=== PATIENT | male | born 1960 | race Caucasian/White ===

== ENCOUNTER 2016-12-20 13:43 | Inpatient (IN) | payer MEDICARE ==
--- NOTE | ~2016-12-20 | EKG ---
PATIENT: ERENDIRA BALLESTEROS UNIT #: [id number] Ventricular Rate: 99 BPM Atrial Rate: 182 BPM QRS Duration: 106 ms Q-T Interval: 424 ms QTC Calculation(Bezet): 544 ms Calculated R [place]: 73 degrees Calculated T [place]: 126 degrees Diagnosis Line: Atrial fibrillation Diagnosis Line: Septal infarct (cited on or before 06-SEP-2010) Diagnosis Line: Prolonged QT Diagnosis Line: Abnormal ECG Diagnosis Line: When compared with ECG of 22-DEC-2015 09:44, Diagnosis Line: Significant changes have occurred Diagnosis Line: Confirmed by OCTAVIO GARDNER MD ([id number]) on 12/23/2016 Diagnosis Line: 7:22:22 AM INTERPRETING MD: JJ LEZAMA
--- NOTE | ~2016-12-20 | CO ---
Unit #: [id number] #: [id number] Patient: ERENDIRA BALLESTEROS JR [id number] [address] [address] [id number] I MR#: [id number] NAME: ERENDIRA BALLESTEROS JR [facility] Age[facility] 56 Sex: M Admission Date: 12/20/2016 : 1960 Attending Physician: Jw Guzman M.D. Primary Care Physician: No Primary Care Physician CONSULTATION REPORT REASON FOR CONSULTATION Critical care management. CHIEF COMPLAINT Altered mental status. HISTORY OF PRESENT ILLNESS Patient brought in by the EMS with altered mental status. Ambulance was called by the family member. Patient was found pulseless, anoxic and was intubated by the EMS staff and was resuscitated. Please see ACLS sheet. I am seeing him at the bedside. Currently, not breathing over the vent, unresponsive on a ventilator, on pressors and is hypotensive. REVIEW OF SYSTEMS Unobtainable. PAST MEDICAL HISTORY Significant for: 1. Hypertension. 2. Coronary artery disease. 3. Dyslipidemia. 4. Hepatitis C. SOCIAL HISTORY Drug abuse. ALLERGIES No known drug allergies. MEDICATIONS As per MAR, has been reviewed. Include: 1. Metformin. 2. Lopressor. 3. Plavix. 4. Lisinopril. 5. Oxycodone. 6. Clotrimazole. PHYSICAL EXAMINATION GENERAL: Currently unresponsive, on ventilator. CVS: S1+ S2. RESPIRATIONS: Bilateral air entry, bilateral mild rhonchi. GI: Nontender, soft. Bowel sounds positive. EXTREMITIES: No edema. Unit #: [id number] #: [id number] Patient: ERENDIRA BALLESTEROS JR SKIN: No rashes, no ulcers. LYMPHATIC: No lymphadenopathy. DIAGNOSTIC STUDIES Labs and imaging have been reviewed. ASSESSMENT AND PLAN 1. Acute respiratory failure. 2. Altered mental status. 3. Anoxic brain injury. 4. Drug overdose. 5. Respiratory and metabolic acidosis. 6. Diabetic ketoacidosis. 7. Hyponatremia. 8. History of coronary artery disease. 9. Leukocytosis. 10. Aspiration pneumonia. At this point, plan is to continue ventilator support, broad spectrum IV antibiotic, continue pressors, insulin drip, aggressive IV hydration. Neurology consultation, cardiology consultation requested. 2D echo. Patient will be closely monitored. Please see orders for detailed plan. I would like to thank you for your kind consideration to involve me in taking care of this patient. Total critical care time is 75 minutes in direct critical care of this patient. Dictated by... Robi Michael TD: 12/21/2016 10:04 JOB #: [id number] CONSULTATION REPORT X Cale Ulrich MD CONSULTATION REPORT
--- NOTE | ~2016-12-20 | CR72 ---
[facility] A Service of [facility] & [facility] RADIOLOGY TEXT RESULTS PATIENT: ERENDIRA BALLESTEROS JR LOCATION: [address] : [birth year] UNIT #: [id number] AGE: [address]: Jw Guzman MD SEX: M ORDER DR: [id number] [facility] [address] [facility]. [place], [place] [address] [id number] I MR#: [id number] Acc #: [id number] NAME: ERENDIRA BALLESTEROS JR : 1960 SEX: M STUDY DATE/TIME: 12/21/2016 12:54 UNIT: [facility] ROOM: [facility] STUDY DESCRIPTION: CR Chest Single View Portable Attending Physician: Jw Guzman M.D. Ordering Physician: Cale Ulrich M.D. Primary Care Physician: Primary Care Physician No MEDICAL IMAGING REPORT This report is preliminary unless electronic signature is present EXAM Portable chest 12/21/2016 HISTORY Line placement today. COMPARISON Chest 12/21/2016. FINDINGS Frontal chest demonstrates interval placement of a right subclavian central venous catheter with tip projecting over the lower SVC. All other tubes and lines are stable. No pneumothorax. Lungs clear. Heart size and mediastinum within normal limits. IMPRESSION Placement of a right subclavian central venous catheter with tip projecting over the lower SVC. All other tubes and lines are stable. No pneumothorax. Dictated by... Juan M Kelly M.D. THIS IS AN ELECTRONICALLY VERIFIED REPORT Juan M Kelly M.D. at 12/23/2016 7:46 AM CHARISSE/silvia TD: 12/22/2016 12:12 JOB #: [id number] MEDICAL IMAGING REPORT COPY
--- NOTE | ~2016-12-20 | CR72 ---
[facility] A Service of [facility] RADIOLOGY TEXT RESULTS PATIENT: ERENDIRA BALLESTEROS JR LOCATION: [address] : [birth year] UNIT #: [id number] AGE: [address]: Jw Guzman MD SEX: M ORDER DR: [id number] [facility] [address] [facility]. [place], [place] [address] [id number] I MR#: [id number] Acc #: [id number] NAME: ERENDIRA BALLESTEROS JR : 1960 SEX: M STUDY DATE/TIME: 12/22/2016 4:45 UNIT: [facility] ROOM: [facility] STUDY DESCRIPTION: CR Chest Single View Portable Attending Physician: Jw Guzman M.D. Ordering Physician: Cale Ulrich M.D. Primary Care Physician: No Primary Care Physician MEDICAL IMAGING REPORT This report is preliminary unless electronic signature is present EXAM AP portable chest 12/22/2016 HISTORY Respiratory failure. Patient on ventilator. Follow up cardiopulmonary status. TECHNIQUE AP portable chest x-ray. FINDINGS The patient has developed new onset dense left lower lobe consolidation since the last study obtained yesterday. This causes opacification of the left lower lobe behind the heart and obscures the left hemidiaphragm. Right lung remains clear. Heart size normal. Endotracheal tube, bilateral subclavian central venous catheters and NG tube remain in good position. IMPRESSION New dense consolidation within the left lower lobe. STAT * RESULT Dictated by... Hero Dale M.D. THIS IS AN ELECTRONICALLY VERIFIED REPORT Hero Dale M.D. at 12/22/2016 5:59 AM [facility] A Service of [facility] & [facility] RADIOLOGY TEXT RESULTS PATIENT: ERENDIRA BALLESTEROS JR LOCATION: [facility] : [birth year] UNIT #: [id number] AGE: [address]: Jw Guzman MD SEX: M ORDER DR: ZONIA/marquise TD: 12/22/2016 05:35 JOB #: [id number] MEDICAL IMAGING REPORT COPY
--- NOTE | ~2016-12-20 | OR ---
Unit #: [id number] #: [id number] Patient: ERENDIRA BALLESTEROS JR [id number] [address] [address] [id number] I MR#: [id number] NAME: ERENDIRA BALLESTEROS JR ROOM: [facility] Date of Procedure: Admission Date: 12/20/2016 Surgeon: Cale Ulrich M.D. : 1960 Attending Physician: Jw Guzman M.D. Primary Care Physician: Ashley Primary Care Physician PROCEDURE OPERATIVE NOTE PROCEDURE PERFORMED Central line placement. INDICATIONS Shock. PRE-PROCEDURE DIAGNOSIS Shock. POST-PROCEDURE DIAGNOSIS Shock. DETAILS OF THE PROCEDURE After taking consent from the family explaining the risks and benefits, we prepped the left side of the chest with ChloraPrep and, under all aseptic technique, and with modified Seldinger technique, a triple lumen central venous catheter inserted in the left subclavian vein. All three ports flushed and working. Guidewire was removed in toto and the line was secured with two interrupted, sutured in place. No complications happened. Dictated by... Robi Michael/shruthi TD: 12/21/2016 10:11 JOB #: [id number] PROCEDURE OPERATIVE NOTE X Cale Ulrich MD PROCEDURE OPERATIVE NOTE
--- NOTE | ~2016-12-20 | EKG ---
PATIENT: ERENDIRA BALLESTEROS UNIT #: [id number] Ventricular Rate: 125 BPM Atrial Rate: 125 BPM P-R Interval: 124 ms QRS Duration: 74 ms Q-T Interval: 320 ms QTC Calculation(Bezet): 461 ms P [place]: 76 degrees Calculated R [place]: 75 degrees Calculated T [place]: 87 degrees Diagnosis Line: Sinus tachycardia Diagnosis Line: Anteroseptal infarct (cited on or before Diagnosis Line: 06-SEP-2010) Diagnosis Line: Abnormal ECG Diagnosis Line: When compared with ECG of 21-DEC-2016 06:47, Diagnosis Line: Nonspecific T wave abnormality no longer evident Diagnosis Line: in Inferior leads Diagnosis Line: Confirmed by AYAZ SUAZO MD ([id number]) on Diagnosis Line: 12/22/2016 8:12:50 PM Diagnosis Line: Also confirmed by AYAZ SUAZO MD ([id number]) on Diagnosis Line: 12/22/2016 8:13:22 PM INTERPRETING MD: SHERI
--- NOTE | ~2016-12-20 | CT71 ---
[facility] A Service of [facility] RADIOLOGY TEXT RESULTS PATIENT: ERENDIRA BALLSETEROS JR LOCATION: [facility] : [birth year] UNIT #: [id number] AGE: [address]: Jw Guzman MD SEX: M ORDER DR: [id number] [facility] [address] [facility]. [place], [place] [address] [id number] I MR#: [id number] Acc #: [id number] NAME: ERENDIRA BALLESTEROS JR : 1960 SEX: M STUDY DATE/TIME: 12/20/2016 15:21 UNIT: [facility] ROOM: [facility] STUDY DESCRIPTION: CT Head Wo Contrast Attending Physician: Jw Guzman M.D. Ordering Physician: Garima Phan M.D. Primary Care Physician: No Primary Care Physician MEDICAL IMAGING REPORT This report is preliminary unless electronic signature is present EXAM Head CT without contrast. DATE OF EXAM 12/20/2016 HISTORY Pupils fixed. Patient unresponsive. Heroin overdose today. TECHNIQUE Axial images were obtained without contrast. NOTE: This CT exam was performed with one or more of the following radiation dose reduction techniques: automatic exposure control, adjustment of mA and/or kV according to patient size, and iterative reconstruction. FINDINGS There is generalized cerebral edema noted with loss of joseph-white matter differentiation. There is no evidence of intracranial hemorrhage. No midline shift is seen. The ambient cisterns are preserved. Extraaxial structures are remarkable for extensive chronic inflammatory sinus disease with fluid in the sphenoid sinuses and right frontal sinus. IMPRESSION Diffuse cerebral edema without evidence of hemorrhage, mass effect, herniation or midline shift. Also noted is mixed chronic and acute pansinusitis. Dictated by... Luis Hdz M.D. THIS IS AN ELECTRONICALLY VERIFIED REPORT Luis Hdz M.D. at 12/22/2016 9:40 PM [facility] A Service of [facility] RADIOLOGY TEXT RESULTS PATIENT: ERENDIRA BALLESTEROS JR LOCATION: [facility] : [birth year] UNIT #: [id number] AGE: [address]: Jw Guzman MD SEX: M ORDER DR: SOFIE/bautitsa TD: 12/20/2016 22:23 JOB #: [id number] MEDICAL IMAGING REPORT COPY
--- NOTE | ~2016-12-20 | A ---
[facility] Nutrition Therapy DATE: 12/21/16 Patient: ERENDIRA BALLESTEROS JR Physician: NATY Address: [address] [place] [address] Room/Bed: [address], Zip: [place] [address] Admit Date: 12/20/16 Date of : [birth year] Height: 6 1 Weight: 163 74 NUTRITIONAL ASSESSMENT: REASON: ICU nutrition assessment 56 yo male admitted for heroin OD, respiratory failure, questionable anoxic brain injury PMH: DM, HTN, CAD, dyslipidemia, hepatitis C, MRSA, cardiac catherization Anthropometrics: Ht: 6'1" Adm wt: 74 kg BMI: 21.5 Labs: K+ 3.2 BUN 32 Creat 2.4 Alb 2.0 AST 182 ALT 106 Mg++ 1.5 Phos 9.2 Accuchecks 74-174 HgbA1C 11.2 Meds: NaCl, D5%, levophed, novolin, sodium bicarbonate, D50%, protonix I/O & Bowel function: 4108/310, last BM 12/21, OGT, abdomen firm, distended Skin Integrity: Small bruises BUE Edema: Trace BL feet and legs/ BL hands and arms Estimated Nutrition Needs: 6703-3288 kcals (25-30 kcals/kg) 111-148 grams protein (1.5-2.0 grams/kg) Assessment: Chart reviewed, events noted. Pt admitted for respiratory failure after heroin overdose, intubated in the ICU. Pt to start on CRRT today. Pt has h/o DM with HgbA1C of 11.2%. No plans for nutrition support at this time. Pt has an OGT. Please see recommendations below. Dx: Inadequate protein-energy intake RT clinical condition AEB no diet order, pt not receiving nutrition at this time, intubated. Intervention: 1. Enteral nutrition once medically feasible Monitoring, Evaluation and Goals: 1. Enteral nutrition; initiate and provide >80% goal volume once medically feasible 2. Labs; WNL: electrolytes, AST, ALT, glucose 3. Weight; prevent unintentional weight loss Recommendations: 1. Once medically feasible, recommend initiating enteral nutrition with Nepro @ 20 mL/hr [facility] Nutrition Therapy DATE: 12/21/16 Patient: ERENDIRA BALLESTEROS JR Physician: NATY Address: [address] [place] [address]/Bed: [address], Zip: [place] [address] Admit Date: 12/20/16 Date of : [birth year] Height: 6 1 Weight: 163 74 + 30 mL Prostat once daily. Increase by 10 mL q 6 hrs as tolerated to goal of 50 mL/hr + 30 mL Prostat once daily. This would provide: 2260 kcals/ 112 grams protein/ 876 mL free H20 2. If enteral nutrition is started, monitor for residuals and symptoms of intolerance per protocol. Pt is at moderate-severe nutritional risk. RD will follow hospital course. Respectfully, DARCY WALLACE RD, LD [facility] cc: client file
--- NOTE | ~2016-12-20 | CR71 ---
[facility] A Service of [facility] & [facility] RADIOLOGY TEXT RESULTS PATIENT: ERENDIRA BALLESTEROS JR LOCATION: [address] : [birth year] UNIT #: [id number] AGE: [address]: Jw Guzman MD SEX: M ORDER DR: [id number] [facility] [address] [facility]. [place], [place] [address] [id number] I MR#: [id number] Acc #: [id number] NAME: EERNDIRA BALLESTEROS : 1960 SEX: M STUDY DATE/TIME: 12/21/2016 3:47 UNIT: [facility] ROOM: [facility] STUDY DESCRIPTION: CR Chest Single View Attending Physician: Jw Guzman M.D. Ordering Physician: Cale Ulrich M.D. Primary Care Physician: No Primary Care Physician MEDICAL IMAGING REPORT This report is preliminary unless electronic signature is present EXAM AP portable chest 12/21/2016 HISTORY Respiratory failure. Patient on ventilator. TECHNIQUE AP portable chest x-ray. FINDINGS Moderately dense airspace infiltrate is present in a left lower lobe at the hilum, unchanged since yesterday. Remaining portions of both lungs are clear. Heart size normal. Coronary artery stent on the left. Endotracheal tube and left subclavian central line remain in good position. NG tube below the diaphragm. IMPRESSION 1. Persistent dense infiltrate in left inferior hilar region. 2. Support devices in good position. 3. No change since yesterday. Dictated by... Hero Dale M.D. THIS IS AN ELECTRONICALLY VERIFIED REPORT Hero Dale M.D. at 12/22/2016 5:30 AM RICKIW/marquise TD: 12/22/2016 02:30 JOB #: [id number] MEDICAL IMAGING REPORT COPY
--- NOTE | ~2016-12-20 | CO ---
Unit #: [id number] #: [id number] Patient: ERENDIRA BALLESTEROS JR [id number] [facility] [address] [facility]. [place], [place] [address] [id number] I MR#: [id number] NAME: ERENDIRA BALLESTEROS JR ROOM: [facility] Age: 56 Sex: M Admission Date: 12/20/2016 : 1960 Attending Physician: Jw Guzman M.D. Consultation Date: 12/21/2016 CONSULTATION REPORT REASON FOR CONSULTATION REQUEST Acute non ST-elevation myocardial infarction. HISTORY OF PRESENT ILLNESS Mr. Ballesteros was admitted with acute hypoxic respiratory failure and cardiopulmonary arrest likely related to heroin overdose. He is a patient Dr. Rios. His sisters were present in ICU room 21 when I examined the patient. They state that he tried to commit suicide with an overdose two weeks ago, but someone on the street gave him Narcan, and he survived. He was at his current 's house, apparently who has a restraining order against him, and was reported to be unresponsive. EMS was called, but we are not sure by whom. He was found pulseless, intubated, resuscitated, and brought to the emergency room. In the emergency room, hypotension was noted, IV fluids were started, and Levophed was given. Initial CT scan of the head showed diffuse edema, suspicious for an anoxic brain injury. He has fixed and dilated pupils, and no doll's eyes. Family members left the emergency room apparently. The current is not available. The daughter has been contacted, but she will not come in currently. Another daughter in [place] has been called apparently. His first ex- has apparently been contacted. From a cardiac perspective, he has been maintained on maximum doses of Levophed, with heart rates greater than 100. An echo was done this morning and showed an ejection fraction of 20% to 25%. Blood pressure has been maintained in the 95 to 100 range. ECG shows sinus tachycardia, with nonspecific ST changes in inferior and lateral. The most recent ECG from 6:47 this morning shows a slight change in aVL, which suggests that the order to delivery supervisor is probably an aVR type order to delivery supervisor. Otherwise, there are no significant changes in comparison with the 12:45 on 12/20/2016 ECG. Labs show current pH 7.22, pCO2 of 54, PO2 293. Creatinine is increased from 1.02 to 2.4, and urine output is negligible. Potassium was initially 3.7, now is 3.2, and being replaced. Magnesium is 1.5, down from 2.2. Total protein and albumin of 5.0 and 2.0. Troponin initially was 18 and is increased to 30. Lactic acid is 2.6, down from 9.2. PAST MEDICAL HISTORY 1. Hypertension. 2. Coronary artery disease. Unit #: [id number] #: [id number] Patient: ERENDIRA BALLESTEROS JR 3. Dyslipidemia. 4. Hepatitis C. 5. MRSA infection in the past. 6. Suicide attempts in the past. PAST SURGICAL HISTORY Cardiac catheterization with stenting placed x2. HOME MEDICATIONS We cannot obtain this information. ALLERGIES Unknown. SOCIAL HISTORY As stated above regarding the children, and wives. FAMILY HISTORY Unknown. PHYSICAL EXAMINATION GENERAL: He is intubated, in room 21, multiple IVs. VITAL SIGNS: Blood pressure 94/65, heart rate is 116, respiratory rate is 16. HEENT: Pupils are dilated, fixed, unresponsive, and no doll's eyes are present. Orally intubated. EXTREMITIES: No clubbing, cyanosis, or edema. Evidence of trauma to the left hand. NECK: Supple with no bruits and no JVD. CHEST: Shows no rales bilaterally. CARDIAC: Shows normal S1 and S2, tachycardic, no S3 or S4, no murmur. ABDOMEN: Nondistended, soft. Cannot assess any reaction. NEUROLOGIC: He is unresponsive, no reflexes. DIAGNOSTIC STUDIES As above regarding ECG and labs. IMPRESSION 1. Acute cardiogenic shock. 2. Non ST-elevation myocardial infarction with troponin increase. 3. Abnormal ECG. 4. Acute systolic congestive heart failure, EF of 20% to 25%. 5. Drug overdose. Urinalysis was positive for amphetamines and opiates. His sisters state that he did not take alcohol, but did smoke. 6. Acute kidney injury. 7. Acute respiratory failure. RECOMMENDATIONS Multiple organ failure. Family is being contacted. From a cardiac standpoint, no intervention is planned. No further evaluations are planned at this time. We will check an ECG and troponin in the morning. Thank you very much for this consultation. Dictated by... Edilberto Ma M.D. Unit #: [id number] #: [id number] Patient: ERENDIRA BALLESTEROS JR/marce TD: 12/21/2016 13:48 JOB #: [id number] CONSULTATION REPORT X Edilberto Ma MD CONSULTATION REPORT
--- NOTE | ~2016-12-20 | CR71 ---
[facility] A Service of [facility] RADIOLOGY TEXT RESULTS PATIENT: ERENDIRA BALLESTEROS JR LOCATION: [address] : [birth year] UNIT #: [id number] AGE: [address]: Jw Guzman MD SEX: M ORDER DR: [id number] [facility] [address] [facility]. [place], [place] [address] [id number] I MR#: [id number] Acc #: [id number] NAME: ERENDIRA BALLESTEROS : 1960 SEX: M STUDY DATE/TIME: 12/20/2016 20:58 UNIT: [facility] ROOM: [facility] STUDY DESCRIPTION: CR Chest Single View Attending Physician: Jw Guzman M.D. Ordering Physician: Jw Guzman M.D. Primary Care Physician: No Primary Care Physician MEDICAL IMAGING REPORT This report is preliminary unless electronic signature is present EXAM Portable chest. DATE OF EXAM 12/20/2016 HISTORY Line placement today. FINDINGS Left subclavian central line tip is in the low SVC 2 cm above the junction SVC and right atrium. No pneumothorax. ETT tip is 5.5 cm above the ally. NG tube extends into the stomach and the tip is not seen. There has been interval near-complete clearing of bilateral perihilar edema or atelectasis compared to earlier today. No new infiltrates. Dictated by... Gonzalo Perkins M.D. THIS IS AN ELECTRONICALLY VERIFIED REPORT Gonzalo Perkins M.D. at 12/21/2016 11:38 PM MEGAN/bautista TD: 12/21/2016 18:39 JOB #: [id number] MEDICAL IMAGING REPORT COPY
--- NOTE | ~2016-12-20 | CO ---
Unit #: [id number] #: [id number] Patient: ERENDIRA BALLESTREOS JR [id number] [address] [place], [place] [address] [id number] I MR#: [id number] NAME: ERENDIRA BALLESTEROS JR ROOM: CIC3 Age: 56 Sex: M Admission Date: 12/20/2016 : 1960 Attending Physician: Jw Guzman M.D. Consultation Date: 12/21/2016 CONSULTATION REPORT REASON FOR CONSULT Acute kidney injury. HISTORY OF PRESENT ILLNESS Mr. Ballesteros is a 56-year-old white male with a history of heroin and methamphetamine use, who was admitted to the hospital after cardiopulmonary arrest and a suspected heroin overdose. All of the history is obtained from the chart as the patient is nonresponsive on the ventilator. He apparently did heroin sitting on the porch and was found unresponsive. I am told by nursing that he was down for about 20 minutes. EMS started resuscitation and brought him to the emergency room. The patient was severely hypotensive on admission with blood pressures down into the 50s and had pressors and IV fluids started. His CT of the head did show diffuse edema that was suspicious for anoxic brain injury. The patient is now requiring three pressors and is not making any urine. Also, he has a history of hypertension, hepatitis C, and diabetes. Family that is present do not think that he has been taking any medications for these issues. PAST MEDICAL HISTORY Significant for hypertension, diabetes, coronary artery disease, hyperlipidemia, hepatitis C, previous MRSA infection. PAST SURGICAL HISTORY Cath with stents. HOME MEDICATIONS Not known. ALLERGIES No known drug allergies. FAMILY HISTORY The patient not able to give family history. SOCIAL HISTORY Again, the patient is a heroin addict and also uses methamphetamine according to family. He is a smoker. He drinks. REVIEW OF SYSTEMS A complete 12-point review of systems was attempted, but simply unable to be obtained with the patient being nonresponsive on the ventilator. PHYSICAL EXAMINATION Unit #: [id number] #: [id number] Patient: ERENDIRA BALLESTEROS JR VITAL SIGNS: The patient's temperature is 98.3, he has been hypothermic and then got up to 100.4; pulse 110; respiratory rate 28; blood pressure 123/77, blood pressure got as low as 54/37. I's and O's are positive by 3.7 L. GENERAL: This is a 56-year-old male, nonresponsive on the ventilator, in no acute distress. HEENT: Head is atraumatic and normocephalic. Eyes show pink conjunctivae. No nasal drainage or nosebleed. The patient is orally intubated. NECK: Shows no rigidity. HEART: Tachycardic and regular with no gallop or rub appreciated. LUNGS: Have bilateral rhonchi. Breath sounds with no wheezing. Breathing is nonlabored on the ventilator. ABDOMEN: Soft, nontender, and nondistended. There are minimal bowel sounds. EXTREMITIES: No lower extremity cyanosis or pitting edema. SKIN: Dry with numerous tattoos. GENITOURINARY: Sesay catheter is in place with minimal nonbloody urine. MUSCULOSKELETAL: No joint effusions noted. LYMPHATIC: There is no significant neck or cervical lymphadenopathy. PSYCHIATRIC: Unable to assess. DIAGNOSTIC STUDIES LABORATORY RESULTS: ABG this morning showed a pH of 7.31, pCO2 of 39, pO2 of 192, bicarb 20. Hemoglobin A1c was 11. Last chemistry this morning; sodium 137, potassium 3.2, chloride 104, bicarb 22, glucose 101, BUN 32, creatinine 2.4 with high AST and ALT and low albumin at 2. CK level this morning was 702, troponin was 30. Lactic acid 2.6. Magnesium came back low at 1.5. Urine drug screen was positive for amphetamines and opioids. BNP was 964 on admission. Urinalysis did have 1+ protein and trace blood with some white blood cells. Lactic acid was 9.2. Admission creatinine was 1, therefore creatinine has steadily increased from 1 to 2.4 with a little urine. ASSESSMENT AND PLAN 1. Acute kidney injury. The patient seems to have severe acute tubular necrosis from cardiopulmonary arrest and hypotension. Despite resuscitative measures, he is not making any urine. We will need to start QUALITY ASSURANCE REPRESENTATIVE. Daughter is not present to help guide us as far as making decisions are concerned, but since we are doing full supportive care at this time. We will add QUALITY ASSURANCE REPRESENTATIVE, however, I do think his prognosis is very poor. I did discuss this case with Dr. Ulrich. 2. Hypokalemia. This has been replaced this morning and we will correct further on a 4K bath on dialysis. 3. Sepsis syndrome, on Zosyn. I will add vancomycin for skin organism coverage with his history of heroin injections. 4. Hypotension, on three pressors at this time. 5. Hepatitis C positive with human immunodeficiency virus test pending. 6. Diabetes with poor control. 7. History of hypertension and heart disease with now low ejection fraction of 20%. 8. Polysubstance abuse. 9. Low magnesium level. This was replaced. Daughters are not present, and apparently, he and his have court orders against each other as far as I can gather among the extended family that is present. I explained to the extended family that was present that his prognosis is very poor considering his overall chronic health issues Unit #: [id number] #: [id number] Patient: FAVIAN GARCÍAERENDIRA and now these acute issues, especially his suspected anoxic brain injury. We would like to thank you for this consultation and the opportunity to participate in the evaluation and care of Mr. Ballesteros. Dictated by... Cyrus Sarah Jr., MTaniya WHITLOCK/marce TD: 12/22/2016 01:50 JOB #: [id number] CONSULTATION REPORT X Cyrus Sarah MD X CONSULTATION REPORT
--- NOTE | ~2016-12-20 | CR72 ---
[facility] A Service of [facility] RADIOLOGY TEXT RESULTS PATIENT: ERENDIRA BALLESTEROS JR LOCATION: CEDOF : [birth year] UNIT #: [id number] AGE: [address]: Jw Guzman MD SEX: M ORDER DR: [id number] [facility] [address] [facility] [place], [place] [address] [id number] MR#: [id number] Acc #: [id number] NAME: ERENDIRA BALLESTEROS : 1960 SEX: M STUDY DATE/TIME: 12/20/2016 1253 UNIT: EFRAIN ROOM: STUDY DESCRIPTION: CR Chest Single View Portable Attending Physician: Garima Phan M.D. Ordering Physician: Garima Phan M.D. Primary Care Physician: No Primary Care Physician MEDICAL IMAGING REPORT This report is preliminary unless electronic signature is present EXAM Chest portable 12/20/2016 1253 hours HISTORY 56-year-old man with respiratory failure, shortness of air, severe congestion, heroin overdose, decreased saturation levels and new endotracheal tube placement. COMPARISON 12/22/2015 FINDINGS Portable upright chest demonstrates endotracheal tube with tip approximately 3 cm above the ally. There is diffuse bilateral mixed interstitial and airspace change mostly in the perihilar distribution suggesting edema. There is no effusion or pneumothorax. There is gaseous distension of the stomach. IMPRESSION 1. New endotracheal tube tip terminates 3 cm above the ally. 2. There is diffuse bilateral mixed interstitial and airspace change predominantly in a perihilar distribution suggesting edema. Pneumonia cannot be excluded. There is no pleural effusion or pneumothorax. 3. Gaseous distension of the stomach is seen. Dictated by... Zulma Welch M.D. THIS IS AN ELECTRONICALLY VERIFIED REPORT Zulma Welch M.D. at 12/20/2016 6:17 PM Douglas [facility] A Service [facility] RADIOLOGY TEXT RESULTS PATIENT: ERENDIRA BALLESTEROS JR LOCATION: CEDOF : [birth year] UNIT #: [id number] AGE: [address]: Jw Guzman MD SEX: M ORDER DR: TD: 12/20/2016 16:32 JOB #: [id number] MEDICAL IMAGING REPORT COPY
--- NOTE | ~2016-12-20 | OR ---
Unit #: [id number] #: [id number] Patient: ERENDIRA BALLESTEROS JR [id number] [address] [address] [id number] MR#: [id number] NAME: ERENDIRA BALLESTEROS ROOM: [facility] Date of Procedure: Admission Date: 12/20/2016 Surgeon: Cale Ulrich M.D. : 1960 Attending Physician: Jw Guzman M.D. Primary Care Physician: Ashley Primary Care Physician PROCEDURE OPERATIVE NOTE PROCEDURE PERFORMED Right subclavian dialysis catheter placement. INDICATION Renal failure. PRE-PROCEDURE DIAGNOSIS (1) . POST-PROCEDURE DIAGNOSIS (2) . DETAILS OF THE PROCEDURE After placing patient in a proper position, we prepped the right side of the chest with ChloraPrep in a sterile fashion with modified Seldinger technique. A 12-Croatian 16 cm dialysis catheter placed in the right subclavian vein. All three ports flushed and working. Guidewire was removed in toto. Catheter was sutured in place with two interrupted sutures. Sterile dressing was applied. Post procedure chest x-ray ordered. No complications happened. Dictated by... Robi Michael/shruthi TD: 12/21/2016 13:49 JOB #: [id number] PROCEDURE OPERATIVE NOTE X Cale Ulrich MD X PROCEDURE OPERATIVE NOTE
--- NOTE | ~2016-12-20 | HP ---
Unit #: [id number] #: [id number] Patient: REENDIRA BALLESTEROS JR [id number] [address] [address] [id number] Henrique MR#: [id number] NAME: ERENDIRA BALLESTEROS JR [facility] Age[facility] 56 Sex: M Admission Date: 12/20/2016 : 1960 Attending Physician: Jw Guzman M.D. Primary Care Physician: No Primary Care Physician HISTORY AND PHYSICAL ADMISSION DIAGNOSES 1. Acute hypoxemic respiratory failure. 2. Status post cardiopulmonary arrest. 3. Heroin overdose. 4. History of coronary artery disease. 5. History of diabetes. 6. Hypertension. 7. Dyslipidemia. 8. History of hepatitis C. HISTORY OF PRESENT ILLNESS Mr. Ballesteros is a 56-year-old gentleman, patient of Dr. Rios, who apparently was sitting on the porch at home and apparently he did heroin and was found unresponsive. EMS was called. EMS found him pulseless. He was intubated, resuscitated and brought to the emergency room. In the emergency room, he was found hypotension, started on IV fluids, started on Levophed. Initial evaluation with CT head shows diffuse edema, suspicious for anoxic brain injury. The patient remains unresponsive with fixed, dilated pupils. Unfortunately, family members left. All the information obtained through the chart and ER physician. Therefore, I am unable to obtain any further history nor am I able to obtain any review of systems. PAST MEDICAL HISTORY Significant for: 1. Hypertension. 2. Coronary artery disease. 3. Dyslipidemia. 4. Hepatitis C. 5. MRSA infection. PAST SURGICAL HISTORY Significant for cardiac cath with stents x2. HOME MEDICATIONS Don't have in front of me. These will be clarified with the pharmacy and patient will be restarted accordingly. ALLERGIES No known drug allergies. SOCIAL HISTORY Apparently he was doing IV drugs. No other history available, no family Unit #: [id number] #: [id number] Patient: ERENDIRA BALLESTEROS JR present. FAMILY HISTORY Unknown. PHYSICAL EXAMINATION GENERAL: The patient is an unresponsive 56-year-old gentleman who is intubated, on mechanical ventilation. VITAL SIGNS: Blood pressure 94/65, heart rate 103, respirations 16, temperature 93.3. HEENT: Head is atraumatic. Pupils dilated, fixed, unresponsive. Orally intubated. NECK: Supple. NO masses, no bruits, no JVD. CHEST: Diminished bilaterally. CARDIOVASCULAR EXAM: S1, S2. No murmurs. ABDOMEN: Soft, nondistended. Bowel sounds are diminished. EXTREMITIES: Lower extremities without any cyanosis, clubbing or edema. NEUROLOGICAL EXAM: Unresponsive. No reflexes. DIAGNOSTIC STUDIES LABORATORY: pH 6.93, pCO2 77, pO2 67.9. Chemistry shows blood glucose of 623, sodium 130, bicarb 20, chloride 94, albumin 2.5. AST, ALT, alkaline phosphatase 98, 55 and 117. BNP 964. Lactic acid 9.2. PT/INR 11.5 and 1.1. Troponin 0.26. CK MB 30.7. HEMATOLOGY: White count 18.6, H and H 11.4 and 39.4, platelets 224. Tox screen positive for amphetamines, positive for opiates. ASSESSMENT AND PLAN 1. Heroin overdose. 2. Acute respiratory failure, mixed hypoxemic/hypercarbic. 3. Status post cardiopulmonary arrest. 4. Likely anoxic brain injury with altered mental state. 5. History of coronary artery disease. 6. History of hypertension. 7. History of diabetes. 8. GI and DVT prophylaxis with PPI and SCDs. PLAN ICU core measures, vent management per Dr. Ulrich, medical billing and coding instructor. Two more sets of cardiac enzymes. Consult cardiology, consult neurology for questionable anoxic brain injury. IV fluids and hemodynamic support. Start on IV insulin as well. Grave prognosis. Dictated by Jw Guzman M.D. OC/df Unit #: [id number] #: [id number] Patient: ERENDIRA BALLESTEROS JR TD: 12/21/2016 08:57 JOB #: [id number] HISTORY AND PHYSICAL X Jw Guzman MD HISTORY AND PHYSICAL
--- NOTE | ~2016-12-20 | EKG ---
PATIENT: ERENDIRA BALLESTEROS UNIT #: [id number] Ventricular Rate: 125 BPM Atrial Rate: 125 BPM P-R Interval: 124 ms QRS Duration: 74 ms Q-T Interval: 320 ms QTC Calculation(Bezet): 461 ms P [place]: 76 degrees Calculated R [place]: 75 degrees Calculated T [place]: 87 degrees Diagnosis Line: Sinus tachycardia Diagnosis Line: Anteroseptal infarct (cited on or before Diagnosis Line: 06-SEP-2010) Diagnosis Line: Abnormal ECG Diagnosis Line: When compared with ECG of 21-DEC-2016 06:47, Diagnosis Line: Nonspecific T wave abnormality no longer evident Diagnosis Line: in Inferior leads Diagnosis Line: Confirmed by AYAZ SUAZO MD ([id number]) on Diagnosis Line: 12/22/2016 8:12:50 PM INTERPRETING MD: SHERI
--- NOTE | ~2016-12-20 | EKG ---
PATIENT: ERENDIRA BALLESTEROS UNIT #: [id number] Ventricular Rate: 109 BPM Atrial Rate: 109 BPM P-R Interval: 134 ms QRS Duration: 82 ms Q-T Interval: 316 ms QTC Calculation(Bezet): 425 ms P [place]: 84 degrees Calculated R [place]: 86 degrees Calculated T [place]: 123 degrees Diagnosis Line: Sinus tachycardia Diagnosis Line: Anteroseptal infarct (cited on or before Diagnosis Line: 06-SEP-2010) Diagnosis Line: Abnormal ECG Diagnosis Line: When compared with ECG of 20-DEC-2016 12:45, Diagnosis Line: (unconfirmed) Diagnosis Line: Sinus rhythm has replaced Atrial fibrillation Diagnosis Line: QRS duration has decreased Diagnosis Line: Questionable change in initial forces of Anterior Diagnosis Line: leads Diagnosis Line: QT has shortened Diagnosis Line: Confirmed by ALINA ELLIS MD ([id number]) on 12/21/2016 Diagnosis Line: 7:57:05 AM INTERPRETING MD: RHONDA LEZAMA
--- NOTE | ~2016-12-20 | CO ---
Unit #: [id number] #: [id number] Patient: ERENDIRA BALLESTEROS JR [id number] [facility] [address] [facility] [place] [facility]. [place], [place] [address] [id number] MR#: [id number] NAME: ERENDIRA BALLESTEROS JR ROOM: [facility] Age: 56 Sex: M Admission Date: 12/20/2016 : 1960 Attending Physician: Jw Guzman M.D. Consultation Date: 12/21/2016 CONSULTATION REPORT REASON FOR CONSULTATION Likely hypoxic and anoxic encephalopathy and drug overdose and neurological evaluation needed for comatose type state. PATIENT IDENTIFICATION This is a 56-year-old apparently right-handed white male, who was evaluated in room ICU 21 at [facility] [place]. SOURCE OF INFORMATION Essentially the medical records whatever information I could get from the gentleman in the room, who reportedly is his [id number]. PROBLEM LIST 1. Acute hypoxemic respiratory failure. 2. Status post cardiopulmonary arrest. 3. Apparently drug overdose may be polysubstance, but possibly heroin also. 4. History of coronary artery disease. 5. History of diabetes. 6. History of hypertension. 7. History of dyslipidemia. 8. History of hepatitis C. 9. History of MRSA infection. 10. Status post cardiac cath several times. 11. He may have chronic pain syndrome because it looks like he is on oxycodone at home. 12. Urine drug screen was positive for amphetamines and opioids. HISTORY OF PRESENT ILLNESS This is a 56-year-old gentleman, who actually was brought in via EMS at 12:30 p.m. on 12/20/2016. Please refer to evaluation done by Dr. Guzman and also Dr. Ulrich, who is the party chief. Also reference is made to the information obtained from EMS. So, apparently he was doing IV drugs and apparently he overdosed and has somebody called the EMS and EMS found him unresponsive. He apparently was pulseless. He was resuscitated and intubated and brought to the emergency room. He was giving IV fluids and other supportive care. His lactic acid was 9.2. His pH was 6.9, pCO2 was 77.3, pO2 was 67.9, sats of 77%. His glucose 623. His BUN and creatinine now is gone up to 32.4. His AST was 98, went up to 182; ALT was 55, went up to 106. CK was 780. His troponin was 18.6, now 30.8. His white count was 18.6, now 47.8; platelet count was 363. CT head showed diffuse edema and typically seen with hypoxia and anoxia. Urine wbc's are 25 to 50. Unit #: [id number] #: [id number] Patient: ERENDIRA BALLESTEROS JR Clinically, the only thing I saw was that he had some posturing on the right side. Other than that, nothing. He may have been down for up to 20 minutes, we do not know. Also there is a situation of who was there and who called EMS and how long was he supported and was there any CPR, so with no eye signs. It is very bad prognostic situation, but still this is almost 24 hours and we are in full supportive mode right now. He is on full supportive care. No prior history of seizures. His polysubstance abuse is known. PAST MEDICAL HISTORY As discussed above. PAST SURGICAL HISTORY As discussed above. ALLERGIES None. HOME MEDICATIONS Apparently were documented by other physicians as metformin, Lopressor, Plavix, lisinopril, oxycodone, clotrimazole, but I am not sure she was taking them. FAMILY HISTORY Reviewed with the gentleman in the room, but could not tell me anything specific neurologic. SOCIAL HISTORY Apparently, he is legally . There is polysubstance abuse. He was doing IV drugs. I am not sure about alcohol or tobacco otherwise. REVIEW OF SYSTEMS Unfortunately could not be obtained in his present state as he essentially is in coma. PHYSICAL EXAMINATION VITAL SIGNS: Temperature was 98.3, pulse is 110, respirations 28, blood pressure is 99/64, O2 saturations 100%. Weight of 163 pounds. When he came in initially, temperature of 93 degrees; pulse of 90; respirations 16; blood pressure 62/52, it has gone down as low as 54/37. Temperature went down as low as 91.2. NEUROLOGIC: The patient is essentially in coma. The only response I got was on the right side, minimum posturing, which seemed to a mixed probably more decorticate and then decerebrate. I did not see any movement in the lower extremities though. Obviously, he is not following any commands or verbalizing or understand. Cranial nerve, his pupils are fixed 5 to 6 mm. No corneals. No doll's eyes. No responses otherwise. I do not see any facial asymmetry. His hearing is questionable. Tongue was midline. I could not visualize his oropharynx or uvula. No head Unit #: [id number] #: [id number] Patient: ERENDIRA BALLESTEROS JR was seen. On motor examination, only posturing in the right upper extremity. Sensory examination; response was only posturing in the right upper extremity. I could not get any reflexes. Toes are mute. Gait and coordination could not be evaluated. DIAGNOSTIC STUDIES LABORATORY RESULTS: Personally reviewed. IMAGING STUDIES: Personally reviewed. IMPRESSION 1. Likely hypoxic and anoxic event secondary to multiple medical issues and the possibility of polysubstance abuse and IV drug use. 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 Brain has not been established. 2. Full supportive care for at least 72 hours if possible and we will see how things go if he improves fine, but I am really, really concerned that this is going to be not pretty picture by my exam in the first 24 hours, but with the drug overdose, we have to give him time and see how things go and go from there. His glucose and other issues obviously not helping. I will follow up and I will keep you informed and I will try to talk to whoever the family members are and we will go from there. Dictated by... Satish Madrid M.D. IAIN/marce TD: 12/21/2016 23:28 JOB #: [id number] CONSULTATION REPORT X Satish Madrid MD X CONSULTATION REPORT
[2016-12-20 13:11] LABS: POC - CKMB 2.2 ng/mL (0.0-7.9); POC - TROPONIN <0.05 ng/mL (<=0.05)
[2016-12-20 13:13] LABS: URINE SOURCE CATH
[2016-12-20 13:18] LABS: BASOPHIL# 0.2 X10e3 (0-0.3); BASOPHIL% 1.2 % (0-2.5); EOSINOPHIL# 0.2 X10e3 (0-0.7); EOSINOPHIL% 0.8 % (0.0-7.0); HEMATOCRIT 39.4 % (38.0-50.0); HEMOGLOBIN 11.4 gm/dL (13.0-16.0); LYMPHOCYTE# 6.5 X10e3 (1.0-3.5); MEAN CORPUSCULAR HGB CONC 28.8 g/dL (30-36); MEAN PLATELET VOLUME 9.8 FL (6.5-11.5); MONOCYTE# 0.5 X10e3 (0-1.0); MONOCYTE% 2.9 % (3.0-12.0); NEUTROPHIL# 11.2 X10e3 (1.5-7.1); NEUTROPHIL% 60.1 % (40-75); PLATELET COUNT 324 X10e3 (140-420); RED BLOOD COUNT 4.06 X10e (3.90-5.60); RED CELL DISTRIBUTION WIDTH 13.9 % (11.0-15.5); URINE APPEARANCE CLOUDY; URINE BILIRUBIN NEG (NEG); URINE BLOOD TRACE (NEG); URINE COLOR YELLOW; URINE GLUCOSE >1000 MG/DL (NEG); URINE KETONE NEG (NEG); URINE LEUKOCYTE ESTERASE NEG (NEG); URINE NITRATE NEG (NEG); URINE PH 7.5 (5-8); URINE PROTEIN 1+ (NEG); URINE SPECIFIC GRAVITY 1.023 (1.003-1.035); WHITE BLOOD COUNT 18.6 X10e3 (4.0-10.5)
[2016-12-20 13:18] LABS: ARTERIAL BLOOD GAS CARBOXY HB 1.7 %sat (0.0-9.0); ARTERIAL BLOOD GAS HCO3 16.2 mmol/L; ARTERIAL BLOOD GAS MET HB 1.1 %sat (0.0-2.0)
[2016-12-20 13:21] LABS: ARTERIAL BLOOD GAS ALLEN TEST NORMAL; ARTERIAL BLOOD GAS ART SITE RIGHT RADIAL; ARTERIAL BLOOD GAS DELIVERY VENT; ARTERIAL BLOOD GAS PCO2 77.3 mmHg (35.0-45.0); ARTERIAL BLOOD GAS PO2 67.9 mmHg (80.0-100); ARTERIAL BLOOD GAS VENT MODE AC; ARTERIAL BLOOD GAS pH 6.931 (7.350-7.450); ARTERIAL DRAW? YES
[2016-12-20 13:21] LABS: CULTURE INDICATED? YES; DIFF IND YES; URINE BACTERIA AUWI NEG (NEGATIVE); URINE SQUAMOUS EPITHELIAL CELL MANY /[HPF]; UWBCS1 AUWI 25-50 (0-5)
[2016-12-20 13:26] LABS: U HYALINE CASTS AUWI 0-2 /[LPF]
[2016-12-20 13:33] LABS: INR 1.1; PROTHROMBIN TIME (PATIENT) 11.5 SECONDS (9.6-11.5)
[2016-12-20 13:35] LABS: PLATELET ESTIMATE NORMAL (NORMAL); POIKILOCYTOSIS SL
[2016-12-20 13:43] LABS: ALBUMIN SERUM 2.5 g/dL (3.5-5.0); ALKALINE PHOSPHATASE 117 U/L (32-92); ALT (SGPT) 55 U/L (10-40); AST (SGOT) 98 U/L (10-42); BILIRUBIN, DIRECT 0.2 mg/dL (0.0-0.2); BILIRUBIN,INDIRECT 0.5 mg/dL (0.0-0.9); BILIRUBIN,TOTAL 0.7 mg/dL (0.2-2.0); BLOOD UREA NITROGEN 16 mg/dL (9-23); CALCIUM SERUM 8.6 mg/dL (8.4-10.2); CARBON DIOXIDE 20 mmol/L (22-31); CHLORIDE 94 mmol/L (100-111); GLOM FILT RATE Estimated ABOVE60 mL/min (>60); LIPASE 35 U/L (22-51); POTASSIUM 3.7 mmol/L (3.5-5.1); PROTEIN TOTAL SERUM 6.2 g/dL (6.0-8.3); SODIUM 130 mmol/L (135-145)
[~2016-12-20 13:43] MED LIST: AMBIEN PO; ARIXTRA2.5 MG/0.1 SQ; ASPIR-TRIN325 MG PO; ASPIRIN ENTERI325 M1 PO; ASPIRIN PO; ASPIRIN81 M1 PO; ATIVAN PO; BACTRIM DS TABL1 TA1 PO; CLINDAMYCIN HC300 MG PO; CLOPIDOGREL75 MG PO; CLOTRIMAZOLE15 GM TP; COPEGUS PO; DAKIN'S MODIF1000 ML TOP; DILANTIN PO; GLUCOPHAGE XR500 MG PO; GLUCOPHAGE500 MG PO; HYDROCODONE-APA1 T51 PO; IBUPROFEN100 MG PO; IBUPROFEN800 MG PO; KEFLEX500 MG PO; LIPITOR PO; LISINOPRIL PO; LISINOPRIL2.5 MG PO; LOPRESSOR PO; LORTAB 10/500 T1 TAB PO; MEGACE PO; METFORMIN HCL500 M1 PO; METOPROLOL SUCC25 MG PO; METOPROLOL TAR25 MG PO; NICOTINE TRANSD21 MG EXT; NORCO 10-325 TA1 TAB PO; OXYCODONE-APAP1 EAC5 PO; OXYCONTIN PO; PANTOPRAZOLE SO40 MG PO; PEGASYS180 MCG/0. SQ; PEGASYS180 MCG/M1 SQ; REBETOL200 MG PO; RIBAVIRIN400 MG PO; RIBAVIRIN600 MG PO; SANTYL15 G1 TOP; TRAZODONE PO; VIT E PO; VITAMIN C PO; ZOCOR PO; ZOLOFT50 MG PO; ZYVOX600 MG PO; [UNRECOGNIZED DRUG - OTHER] PO
[2016-12-20 13:51] LABS: AMPHETAMINE POS (NEG); BARBITURATES NEG (NEG); BENZODIAZEPINES NEG (NEG); COCAINE NEG (NEG); MARIJUANA NEG (NEG); OPIATES POS (NEG); TRICYCLIC ANTIDEPRESSANTS NEG (NEG); U METHADONE NEG (NEG)
[2016-12-20 13:52] LABS: ALCOHOL BLOOD <5 mg/dL (0); GLUCOSE FASTING 623 mg/dL (70-110)
[2016-12-20 16:27] LABS: POC - CKMB 30.7 ng/mL (0.0-7.9); POC - TROPONIN 0.26 ng/mL (<=0.05)
[2016-12-20 20:08] LABS: INR 1.3; PARTIAL THROMBOPLASTIN TIME 34.3 SECONDS (23.5-31.3)
[2016-12-20 20:26] LABS: BASOPHIL% 0.1 % (0-2.5); EOSINOPHIL% 0.1 % (0.0-7.0); HEMATOCRIT 46.1 % (38.0-50.0); HEMOGLOBIN 14.3 gm/dL (13.0-16.0); LYMPHOCYTE# 1.2 X10e3 (1.0-3.5); LYMPHOCYTE% 4.7 % (17.0-45.0); MEAN CELL VOLUME 91.5 FL (83-96); MEAN CORPUSCULAR HEMOGLOBIN 28.4 PG (28-34); MEAN PLATELET VOLUME 8.9 FL (6.5-11.5); MONOCYTE# 0.2 X10e3 (0-1.0); MONOCYTE% 0.7 % (3.0-12.0); NEUTROPHIL# 24.6 X10e3 (1.5-7.1); NEUTROPHIL% 94.4 % (40-75); PLATELET COUNT 446 X10e3 (140-420); RED BLOOD COUNT 5.04 X10e (3.90-5.60); RED CELL DISTRIBUTION WIDTH 13.2 % (11.0-15.5); WHITE BLOOD COUNT 26.1 X10e3 (4.0-10.5)
[2016-12-20 20:28] LABS: DIFF IND NO
[2016-12-20 20:30] LABS: ARTERIAL BLD GAS O2 SATURATION 98.1 % (90.0-100.0); ARTERIAL BLOOD GAS MET HB 1.2 %sat (0.0-2.0)
[2016-12-20 20:31] LABS: ARTERIAL BLOOD GAS pH 7.043 (7.350-7.450)
[2016-12-20 20:32] LABS: ARTERIAL BLOOD GAS ALLEN TEST NORMAL; ARTERIAL BLOOD GAS ART SITE RIGHT RADIAL; ARTERIAL BLOOD GAS DELIVERY VENT; ARTERIAL BLOOD GAS PCO2 80.9 mmHg (35.0-45.0); ARTERIAL BLOOD GAS VENT MODE A/C; ARTERIAL DRAW? YES
[2016-12-20 20:52] LABS: ALBUMIN SERUM 2.5 g/dL (3.5-5.0); BILIRUBIN,TOTAL 1.6 mg/dL (0.2-2.0); CALCIUM SERUM 7.5 mg/dL (8.4-10.2); CREATININE SERUM 1.8 mg/dL (0.6-1.4); MAGNESIUM 2.2 mg/dL (1.6-3.0); POTASSIUM 4.6 mmol/L (3.5-5.1); PROTEIN TOTAL SERUM 6.3 g/dL (6.0-8.3)
[2016-12-20 20:53] LABS: PHOSPHOROUS 9.2 mg/dL (2.5-4.6)
[2016-12-20 21:26] LABS: ARTERIAL BLD GAS O2 SATURATION 98.2 % (90.0-100.0); ARTERIAL BLOOD GAS HCO3 19.6 mmol/L; ARTERIAL BLOOD GAS MET HB 1.1 %sat (0.0-2.0)
[2016-12-20 21:27] LABS: ARTERIAL BLOOD GAS ALLEN TEST NORMAL; ARTERIAL BLOOD GAS ART SITE RIGHT RADIAL; ARTERIAL BLOOD GAS DELIVERY VENT; ARTERIAL BLOOD GAS PCO2 60.9 mmHg (35.0-45.0); ARTERIAL BLOOD GAS VENT MODE A/C; ARTERIAL BLOOD GAS pH 7.117 (7.350-7.450); ARTERIAL DRAW? YES
[2016-12-20 22:55] LABS: %MB 14.1 % (0.0-4.0); MB 109.9 ng/ml
[2016-12-21 04:00] LABS: ARTERIAL BLOOD GAS HCO3 22.3 mmol/L; ARTERIAL BLOOD GAS MET HB 0.9 %sat (0.0-2.0); ARTERIAL BLOOD GAS pH 7.221 (7.350-7.450)
[2016-12-21 04:04] LABS: ARTERIAL BLOOD GAS PCO2 54.4 mmHg (35.0-45.0)
[2016-12-21 04:05] LABS: ARTERIAL BLOOD GAS ALLEN TEST NORMAL; ARTERIAL BLOOD GAS ART SITE RIGHT RADIAL; ARTERIAL BLOOD GAS DELIVERY VENT; ARTERIAL BLOOD GAS VENT MODE A/C; ARTERIAL DRAW? YES
[2016-12-21 06:08] LABS: HEMATOCRIT 40.4 % (38.0-50.0); HEMOGLOBIN 12.6 gm/dL (13.0-16.0); LYMPHOCYTE# 1.6 X10e3 (1.0-3.5); LYMPHOCYTE% 3.3 % (17.0-45.0); MEAN CELL VOLUME 88.7 FL (83-96); MEAN CORPUSCULAR HEMOGLOBIN 27.7 PG (28-34); MEAN CORPUSCULAR HGB CONC 31.2 g/dL (30-36); MEAN PLATELET VOLUME 9.3 FL (6.5-11.5); MONOCYTE# 0.9 X10e3 (0-1.0); MONOCYTE% 1.9 % (3.0-12.0); NEUTROPHIL# 45.3 X10e3 (1.5-7.1); NEUTROPHIL% 94.8 % (40-75); PLATELET COUNT 363 X10e3 (140-420); RED BLOOD COUNT 4.55 X10e (3.90-5.60); RED CELL DISTRIBUTION WIDTH 13.1 % (11.0-15.5); WHITE BLOOD COUNT 47.8 X10e3 (4.0-10.5)
[2016-12-21 06:09] LABS: DIFF IND NO
[2016-12-21 07:13] LABS: %MB 17.2 % (0.0-4.0); MB 120.4 ng/ml
[2016-12-21 07:15] LABS: BUN/CREATININE RATIO 13.33; CALCIUM SERUM 7.7 mg/dL (8.4-10.2); CREATININE SERUM 2.4 mg/dL (0.6-1.4); GLOM FILT RATE Estimated 30.1 mL/min (>60); POTASSIUM 3.2 mmol/L (3.5-5.1)
[2016-12-21 08:29] LABS: BILIRUBIN,TOTAL 1.1 mg/dL (0.2-2.0); POTASSIUM 3.2 mmol/L (3.5-5.1)
[2016-12-21 08:41] LABS: BUN/CREATININE RATIO 13.33; CREATININE SERUM 2.4 mg/dL (0.6-1.4); GLOM FILT RATE Estimated 30.1 mL/min (>60)
[2016-12-21 08:42] LABS: CALCIUM SERUM 7.7 mg/dL (8.4-10.2)
[2016-12-21 10:21] LABS: ARTERIAL BLD GAS O2 SATURATION 98.9 % (90.0-100.0); ARTERIAL BLOOD GAS HCO3 20.2 mmol/L; ARTERIAL BLOOD GAS MET HB 0.8 %sat (0.0-2.0); ARTERIAL BLOOD GAS PCO2 39.5 mmHg (35.0-45.0); ARTERIAL BLOOD GAS pH 7.317 (7.350-7.450)
[2016-12-21 10:22] LABS: ARTERIAL BLOOD GAS ALLEN TEST NORMAL; ARTERIAL BLOOD GAS ART SITE RIGHT RADIAL; ARTERIAL BLOOD GAS DELIVERY VENT; ARTERIAL BLOOD GAS VENT MODE A/C; ARTERIAL DRAW? YES
[2016-12-21 18:47] LABS: ALBUMIN SERUM 1.8 g/dL (3.5-5.0); BILIRUBIN,TOTAL 1.4 mg/dL (0.2-2.0); BUN/CREATININE RATIO 10.52; CALCIUM SERUM 6.4 mg/dL (8.4-10.2); CREATININE SERUM 1.9 mg/dL (0.6-1.4); GLOM FILT RATE Estimated 39.5 mL/min (>60); MAGNESIUM 1.7 mg/dL (1.6-3.0); PHOSPHOROUS 2.9 mg/dL (2.5-4.6); POTASSIUM 3.6 mmol/L (3.5-5.1)
[2016-12-22 03:42] LABS: ARTERIAL BLD GAS O2 SATURATION 93.3 % (90.0-100.0); ARTERIAL BLOOD GAS CARBOXY HB 0.3 %sat (0.0-9.0); ARTERIAL BLOOD GAS HCO3 28.8 mmol/L; ARTERIAL BLOOD GAS MET HB 0.8 %sat (0.0-2.0); ARTERIAL BLOOD GAS PCO2 46.5 mmHg (35.0-45.0); ARTERIAL BLOOD GAS PO2 83.4 mmHg (80.0-100); ARTERIAL BLOOD GAS pH 7.399 (7.350-7.450)
[2016-12-22 03:47] LABS: ARTERIAL BLOOD GAS ART SITE LEFT FEMORAL; ARTERIAL DRAW? YES
[2016-12-22 03:48] LABS: ARTERIAL BLOOD GAS DELIVERY VENT; ARTERIAL BLOOD GAS VENT MODE AC
[2016-12-22 04:54] LABS: BASOPHIL% 0.1 % (0-2.5); HEMOGLOBIN 11.3 gm/dL (13.0-16.0); LYMPHOCYTE# 1.7 X10e3 (1.0-3.5); LYMPHOCYTE% 5.2 % (17.0-45.0); MEAN CELL VOLUME 86.1 FL (83-96); MEAN CORPUSCULAR HEMOGLOBIN 27.8 PG (28-34); MEAN CORPUSCULAR HGB CONC 32.3 g/dL (30-36); MEAN PLATELET VOLUME 9.6 FL (6.5-11.5); MONOCYTE# 0.8 X10e3 (0-1.0); MONOCYTE% 2.6 % (3.0-12.0); NEUTROPHIL# 29.6 X10e3 (1.5-7.1); NEUTROPHIL% 92.1 % (40-75); PLATELET COUNT 245 X10e3 (140-420); RED BLOOD COUNT 4.06 X10e (3.90-5.60); RED CELL DISTRIBUTION WIDTH 13.3 % (11.0-15.5); WHITE BLOOD COUNT 32.1 X10e3 (4.0-10.5)
[2016-12-22 04:56] LABS: DIFF IND NO
[2016-12-22 05:07] LABS: INR 1.6; PROTHROMBIN TIME (PATIENT) 17.1 SECONDS (9.6-11.5)
[2016-12-22 05:15] LABS: PARTIAL THROMBOPLASTIN TIME 63.4 SECONDS (23.5-31.3)
[2016-12-22 05:40] LABS: ALBUMIN SERUM 1.6 g/dL (3.5-5.0); ALKALINE PHOSPHATASE 146 U/L (32-92); ALT (SGPT) 122 U/L (10-40); AST (SGOT) 158 U/L (10-42); BILIRUBIN,TOTAL 1.4 mg/dL (0.2-2.0); BLOOD UREA NITROGEN 11 mg/dL (9-23); BUN/CREATININE RATIO 8.46; CALCIUM SERUM 6.4 mg/dL (8.4-10.2); CARBON DIOXIDE 27 mmol/L (22-31); CHLORIDE 99 mmol/L (100-111); CPK (CREATINE PHOSPHOKINASE) 327 IU/L (36-174); CREATININE SERUM 1.3 mg/dL (0.6-1.4); GLOM FILT RATE Estimated ABOVE60 mL/min (>60); GLUCOSE FASTING 123 mg/dL (70-110); MAGNESIUM 1.7 mg/dL (1.6-3.0); PHOSPHOROUS 3.1 mg/dL (2.5-4.6); POTASSIUM 4.4 mmol/L (3.5-5.1); PROTEIN TOTAL SERUM 4.3 g/dL (6.0-8.3); SODIUM 136 mmol/L (135-145)
[2016-12-22 13:06] LABS: INR 1.3; PARTIAL THROMBOPLASTIN TIME 55.9 SECONDS (23.5-31.3); PROTHROMBIN TIME (PATIENT) 14.3 SECONDS (9.6-11.5)
[2016-12-22 13:17] LABS: BLOOD UREA NITROGEN 6 mg/dL (9-23); BUN/CREATININE RATIO 6.66; CALCIUM SERUM 6.5 mg/dL (8.4-10.2); CARBON DIOXIDE 28 mmol/L (22-31); CHLORIDE 103 mmol/L (100-111); CREATININE SERUM 0.9 mg/dL (0.6-1.4); GLOM FILT RATE Estimated ABOVE60 mL/min (>60); GLUCOSE FASTING 165 mg/dL (70-110); MAGNESIUM 1.9 mg/dL (1.6-3.0); PHOSPHOROUS 2.4 mg/dL (2.5-4.6); POTASSIUM 4.5 mmol/L (3.5-5.1); SODIUM 136 mmol/L (135-145)
[2016-12-24 22:11] LABS: HA AB IGM (HEPPAN) Nonreactive (Nonreactive); HB CORE AB IGM (HEPPAN) Nonreactive (Nonreactive); HB S AG (HEPPAN) Nonreactive (Nonreactive); HEP C AB (HEPPAN) Reactive (Nonreactive)
== END 2016-12-22 23:49 | disposition expired | DRG 917 ==
LOC: CED 13:43 → CEDOF 16:57 → CICCU3 18:53
PROVIDERS: Emergency Medicine; Hospitalist; Internal Medicine; Internal Medicine Nephrology
PROC: 5A1945Z Respiratory Ventilation, 24-96 Consecutive Hours (ICD-10-PCS; principal; 2016-12-20)
PROC: 05H633Z Insertion of Infusion Device into Left Subclavian Vein, Percutaneous Approach (ICD-10-PCS; 2016-12-20)
PROC: 05H533Z Insertion of Infusion Device into Right Subclavian Vein, Percutaneous Approach (ICD-10-PCS; 2016-12-21)
PROC: B24BYZZ Ultrasonography of Heart with Aorta using Other Contrast (ICD-10-PCS; 2016-12-21)
DX: T40.1X1A Poisoning by heroin, accidental (unintentional), initial encounter (principal); J96.01 Acute respiratory failure with hypoxia; G93.6 Cerebral edema; I21.4 Non-ST elevation (NSTEMI) myocardial infarction; N17.0 Acute kidney failure with tubular necrosis; A41.9 Sepsis, unspecified organism; J96.02 Acute respiratory failure with hypercapnia; E13.10 Other specified diabetes mellitus with ketoacidosis without coma; J69.0 Pneumonitis due to inhalation of food and vomit; I50.21 Acute systolic (congestive) heart failure; G93.1 Anoxic brain damage, not elsewhere classified; E87.4 Mixed disorder of acid-base balance; E87.1 Hypo-osmolality and hyponatremia; I47.1 Supraventricular tachycardia; I25.10 Atherosclerotic heart disease of native coronary artery without angina pectoris; I10 Essential (primary) hypertension; E78.5 Hyperlipidemia, unspecified; B19.20 Unspecified viral hepatitis C without hepatic coma; Z86.14 Personal history of Methicillin resistant Staphylococcus aureus infection; R57.0 Cardiogenic shock; Z79.84 Long term (current) use of oral hypoglycemic drugs; D72.829 Elevated white blood cell count, unspecified; E87.6 Hypokalemia; Z66 Do not resuscitate; Z51.5 Encounter for palliative care
CPT/HCPCS: 36415; 36600; 51702; 70450; 71010; 80048; 80053; 80061; 80074; 80076; 80202; 80307; 81003; 82550; 82553; 82803; 82947; 83036; 83605; 83690; 83735; 83880; 84100; 84484; 85025; 85610; 85730; 87040; 87086; 87340; 87522; 87806; 90945; 93005; 93306; 94002; 94003; 94640; 94760; 96365; 96366; 96367; 96375; 99291; C1750; C9113; G0480; J0282; J1265; J1644; J1815; J1940; J2310; J2370; J2543; J3370; J3475